=== PATIENT | male | born 1935 | race Caucasian/White ===

== ENCOUNTER → 2016-11-03 | Day surgery (SDC) | payer MEDICARE, OTHER ==
[~2016-11-03] VITALS: Ht 175.3 cm; Wt 82.6 kg
[~2016-11-03] MED LIST: ACETAMINOPHEN 650MG ER TAB (TYLENOL ARTHRITIS) PO SCH; ALLO100T PO; AMLO2.5T PO; ASPI325T28 PO; ATOR40TA75 PO; BACITRACIN OINT 30GM As Ordered ONE; BACITRACIN OINT 30GM TOP SCH; BACT800T5 PO; BACTRIM 160MG/800MG DS TAB PO SCH; D 50CAP PO; FERR325T3 PO; FISH1000 PO; FLUTISP; ISOS1TAB12 PO; LIDOCAINE 2% INJ 100 MG/5 ML SDV (FOR ANES.) As Ordered ONE; LISI20TA PO; LR 1,000 ML IV ONE; LR 1,000 ML IV SCH; METF500T13 PO; METO1TAB32 PO; METOCLOPRAMIDE INJ 10MG/2ML VIAL (J2765) As Ordered ONE; MIDAZOLAM INJ 2 MG/2 ML VIAL (J2250) As Ordered ONE; NIAC500T5 PO; ONDANSETRON 4MG/2ML VIAL (J2405) As Ordered ONE; ONDANSETRON 4MG/2ML VIAL (J2405) IV PRN; ONGL10TA3 PO; PROPOFOL 200 MG/20 ML VIAL As Ordered ONE; TYLE650T35 PO; VITA500T PO; VITA500T3 PO; fentaNYL 100 MCG/2 ML INJECTION (J3010) As Ordered ONE; fentaNYL 100 MCG/2 ML INJECTION (J3010) IV PRN
[2016-11-03 18:15] VITALS: BP 135/84
--- NOTE | 2016-11-04 10:46 | RO ---
DATE OF PROCEDURE: 11/03/2016 PREPROCEDURE DIAGNOSIS: Condyloma acuminatum of the genitalia. POSTPROCEDURE DIAGNOSIS: Condyloma acuminatum of the genitalia. FINDINGS: 20 condyloma acuminatum of the genitalia in the groin and scrotum and also in the shaft of the penis. SURGERY PERFORMED: CO2 laser ablation of condyloma acuminatum of the genitalia. SURGEON: Brendan Marquez MD SCHOOL OCCUPATIONAL THERAPIST: ANESTHESIA: General. COMPLICATIONS: None. ESTIMATED BLOOD LOSS: N/A. HISTORY OF PRESENT ILLNESS: This is an 81-year-old male patient that has multiple condyloma acuminata in the groins, scrotum and penile shaft. For this reason, he has consented for CO2 laser ablation of the condyloma of the genitalia. DESCRIPTION OF PROCEDURE: With the patient under general anesthesia in supine position, after prepping and draping the area of concern, which included the entire genitalia, we started by doing laser ablation of the condyloma acuminatum of the groins on a power of 5. All the condylomas were burned. We then proceeded to the shaft. We then took a biopsy of one of the condyloma and sent it for permanent pathology analysis. Once all the condyloma were ablated with CO2 laser, we placed Bacitracin cream and stopped the procedure. PLAN: The patient will go to recovery. He will go home with Bacitracin cream applied once a day. Antibiotics for 10 days. Tylenol extended release 650 mg one tablet by mouth every 8 hours. There were no complications during surgery.
== END | disposition home or self-care (01) ==
LOC: M SDC 12:31
PROVIDERS: ATTEND Urology
DX: A63.0 Anogenital (venereal) warts (principal); I71.4 Abdominal aortic aneurysm, without rupture; I25.10 Atherosclerotic heart disease of native coronary artery without angina pectoris; I10 Essential (primary) hypertension; E78.00 Pure hypercholesterolemia, unspecified; E11.9 Type 2 diabetes mellitus without complications; R06.83 Snoring; N40.0 Benign prostatic hyperplasia without lower urinary tract symptoms; G47.33 Obstructive sleep apnea (adult) (pediatric); Z79.899 Other long term (current) drug therapy; Z79.82 Long term (current) use of aspirin; Z79.84 Long term (current) use of oral hypoglycemic drugs; Z95.5 Presence of coronary angioplasty implant and graft
CPT/HCPCS: 54065; 88305; J0690; J2250; J2405; J2765; J3010

== ENCOUNTER 2017-02-08 15:05 | Day surgery (SDC) | payer MEDICARE, OTHER ==
[~2017-02-08] VITALS: Ht 172.7 cm; Wt 78.2 kg
[~2017-02-08 15:05] MED LIST changes: -ACETAMINOPHEN 650MG ER TAB (TYLENOL ARTHRITIS) PO SCH; -BACITRACIN OINT 30GM As Ordered ONE; -BACITRACIN OINT 30GM TOP SCH; -BACTRIM 160MG/800MG DS TAB PO SCH; -LIDOCAINE 2% INJ 100 MG/5 ML SDV (FOR ANES.) As Ordered ONE; -LR 1,000 ML IV ONE; -LR 1,000 ML IV SCH; -METOCLOPRAMIDE INJ 10MG/2ML VIAL (J2765) As Ordered ONE; -MIDAZOLAM INJ 2 MG/2 ML VIAL (J2250) As Ordered ONE; -ONDANSETRON 4MG/2ML VIAL (J2405) As Ordered ONE; -ONDANSETRON 4MG/2ML VIAL (J2405) IV PRN; -PROPOFOL 200 MG/20 ML VIAL As Ordered ONE; -fentaNYL 100 MCG/2 ML INJECTION (J3010) As Ordered ONE; -fentaNYL 100 MCG/2 ML INJECTION (J3010) IV PRN
[2017-02-08] MEDS ORDERED: BACITRACIN OINT 30GM As Ordered ONE (15:12)
[2017-02-08] MEDS ORDERED: LR 1,000 ML IV ONE (15:15)
[2017-02-08] MEDS ORDERED: LIDOCAINE 1% MDV 20ML VIAL SQ PRN (15:15)
[2017-02-08] MEDS ORDERED: LIDOCAINE 2% INJ 100 MG/5 ML SDV (FOR ANES.) As Ordered ONE (17:02)
[2017-02-08] MEDS ORDERED: PROPOFOL 200 MG/20 ML VIAL As Ordered ONE (17:02)
[2017-02-08] MEDS ORDERED: MIDAZOLAM INJ 2 MG/2 ML VIAL (J2250) As Ordered ONE (17:03)
[2017-02-08] MEDS ORDERED: fentaNYL 100 MCG/2 ML INJECTION (J3010) As Ordered ONE ×2 (17:03→19:05)
[2017-02-08] MEDS ORDERED: PERCOCET 5MG/325MG TAB As Ordered ONE (19:05)
[2017-02-08] MEDS: PERCOCET 5MG/325MG TAB PO PRN ×2 (19:10→19:40)
[2017-02-08] MEDS: fentaNYL 100 MCG/2 ML INJECTION (J3010) IV PRN ×4 (19:10→19:40)
[2017-02-08] MEDS ORDERED: ONDANSETRON 4MG/2ML VIAL (J2405) IV PRN (19:15)
[2017-02-08] MEDS ORDERED: LR 1,000 ML IV SCH (19:15)
[2017-02-08 20:40] VITALS: BP 169/70
[2017-02-08] MEDS ORDERED: ACETAMINOPHEN 650MG ER TAB (TYLENOL ARTHRITIS) PO SCH (22:00)
--- NOTE | 2017-02-09 06:48 | RO ---
DATE OF PROCEDURE: 02/08/2017 PREOPERATIVE DIAGNOSIS: Condyloma of genitalia. POSTOPERATIVE DIAGNOSIS: Condyloma of genitalia. SURGERY: CO2 laser ablation of condyloma of the genitalia and excision of the condyloma of genitalia. SURGEON: Dr. Brendan Marquez FOOD SCIENCE PROFESSOR: None. ANESTHESIA: LMA. FINDINGS: Condyloma of genitalia in the inguinal areas and penile shaft, more than 25 condylomas ablated. COMPLICATIONS: None. ESTIMATED BLOOD LOSS: N/A. HISTORY OF PRESENT ILLNESS: This is an 81-year-old male patient with inguinal areas of multiple condyloma acuminata of the genitalia, more than 25. There is also a lesion in the left inguinal area of about 3 cm in diameter. For this reason, he has elected to undergo a CO2 laser ablation of condyloma of the genitalia. PROCEDURE DESCRIPTION: In a patient in supine position after prepping and draping the area of concern, we started by ablating with CO2 laser the condyloma of the right inguinal area. There were about 10 condylomas of about 4-5 mm each and a maximum mm size of 1 cm in diameter. We then went to the left side with CO2 laser ablation at a power of 2 linder and then of 5 linder. We actively ablated all the condylomas in the left inguinal area. There was an area of about 3 cm in diameter that we excised with a cold knife 15 blade and then fulgurated all the bleeding vessels with electro Bovie cautery. Then sutured back together the skin with #3-0 Monocryl in separate stitches. We then placed bacitracin cream on top of each lesion that was ablated with the CO2 laser and placed fluffs and a scrotal support. PLAN: The patient will go home today. He will apply bacitracin cream to all areas and take Tylenol for pain. There were no complications of the surgery. A piece of condyloma was sent for permanent pathology analysis.
== END 2017-02-08 21:05 | disposition home or self-care (01) ==
LOC: M SDC 15:05
PROVIDERS: ATTEND Urology
DX: A63.0 Anogenital (venereal) warts (principal); I25.10 Atherosclerotic heart disease of native coronary artery without angina pectoris; E11.9 Type 2 diabetes mellitus without complications; I10 Essential (primary) hypertension; G47.30 Sleep apnea, unspecified; N40.0 Benign prostatic hyperplasia without lower urinary tract symptoms; Z79.899 Other long term (current) drug therapy; Z95.1 Presence of aortocoronary bypass graft
CPT/HCPCS: 54057; 54060; 88305; J0690; J2250; J3010